=== PATIENT | female | born 1980 | race Caucasian/White ===

== ENCOUNTER 2022-06-23 00:19 | Inpatient (IN) | payer MEDICAID ==
[~2022-06-23] VITALS: Ht 152.4 cm; Wt 78.0 kg
[2022-06-23] MEDS ORDERED: AMPICILLIN 2GM in NS 100ML 100 ML IV SCH (04:00)
[2022-06-23] MEDS ORDERED: METHYLERGONOVINE MALEATE 0.2 MG/ML IM PRN (04:00)
[2022-06-23] MEDS ORDERED: LIDOCAINE HCL 1% 20ML VIAL (Pyxis) INJ INFIL NR (04:00)
[2022-06-23] MEDS ORDERED: OXYTOCIN 30 UNITS/500ML NS PMX 500 ML IV SCH (04:00)
[2022-06-23] MEDS ORDERED: NALOXONE HCL 0.4 MG/ML 1ML VIAL IM PRN (04:00)
[2022-06-23] MEDS: LACTATED RINGERS 1,000 ML IV SCH ×2 (04:52→06:24)
[2022-06-23] MEDS: BUTORPHANOL TARTRATE 2 MG/ML VIAL IV PRN ×2 (04:53→06:34)
[2022-06-23 06:22] LABS: BASOPHILS % 0.3 % (0.0-2.0); EOSINOPHILS % 0.8 % (0.0-5.0); HEMOGLOBIN. 13.3 g/dL (12.0-16.0); LYMPHOCYTES % 19.6 % (20.0-50.0); MEAN CORPUSCULAR HEMOGLOBIN 29.9 pg (28.0-32.0); MEAN CORPUSCULAR VOLUME 89.7 fL (81.0-99.0); MEAN PLATELET VOLUME 10.9 fl (7.4-10.4); NEUTROPHILS % 75.3 % (40.0-76.0); PLATELET 202 x1000/uL (130-400); RED BLOOD CELL COUNT 4.46 mill/uL (4.2-5.4); RED CELL DISTRIBUTION WIDTH 14.8 % (11.6-14.6)
[2022-06-23 06:24] LABS: CLARITY URINE CLEAR (CLEAR); COLOR URINE YELLOW (YELLOW); KETONES URINE NEGATIVE (NEGATIVE); LEUKOCYTE ESTERASE URINE NEGATIVE (NEGATIVE); NITRITE URINE NEGATIVE (NEGATIVE); OCCULT BLOOD URINE NEGATIVE (NEGATIVE); PROTEIN URINE NEGATIVE (NEGATIVE); SPECIFIC GRAVITY URINE 1.002 (1.005-1.030); UROBILINOGEN URINE 0.2 E.U./dL (0.2-1.0)
[2022-06-23 06:30] LABS: INR 0.9; PARTIAL THROMBOPLASTIN TIME 29.9 sec (23.4-31.0); PROTHROMBIN TIME 9.6 sec (9.6-11.0)
[2022-06-23 06:38] LABS: *AMPHETAMINES SCREEN URINE NEGATIVE (NEGATIVE); *BARBITURATES SCREEN URINE NEGATIVE (NEGATIVE); *BENZODIAZEPINES SCREEN URINE NEGATIVE (NEGATIVE); *COCAINE SCREEN URINE NEGATIVE (NEGATIVE); CANNABINOID URINE SCREEN NEGATIVE (NEGATIVE); METHADONE URINE SCREEN NEGATIVE (NEGATIVE); OPIATES URINE SCREEN NEGATIVE (NEGATIVE); PHENCYCLIDINE URINE SCREEN NEGATIVE (NEGATIVE)
[2022-06-23] MEDS ORDERED: IBUPROFEN 400MG TABLET PO PRN (07:15)
[2022-06-23] MEDS ORDERED: PREN-176 PO (08:05)
[2022-06-23 09:00] VITALS: BP 95/53
[2022-06-23] MEDS ORDERED: AMPICILLIN 1,000 MG in SODIUM CHLORIDE 0.9% 50 ML IV SCH (10:30)
[2022-06-23] MEDS: PRENATAL VIT/FE FUMARATE/FA TABLET PO SCH (11:30)
[2022-06-23] MEDS: IBUPROFEN 800MG TABLET PO PRN ×2 (11:31→18:20)
[2022-06-23 16:00] VITALS: BP 96/57
[2022-06-23 20:00] VITALS: BP 99/57
[2022-06-24] MEDS: IBUPROFEN 800MG TABLET PO PRN ×4 (00:26→20:36)
[2022-06-24 04:00] VITALS: BP 105/58
[2022-06-24] MEDS ORDERED: IBUP-2030 PO (06:28)
[2022-06-24] MEDS ORDERED: FERR-63 PO (06:28)
[2022-06-24 07:30] LABS: BASOPHILS % 0.2 % (0.0-2.0); HEMATOCRIT. 33.7 % (36.0-48.0); HEMOGLOBIN. 11.1 g/dL (12.0-16.0); LYMPHOCYTES % 15.9 % (20.0-50.0); MEAN CORPUSCULAR HEMOGLOBIN 29.8 pg (28.0-32.0); MEAN CORPUSCULAR VOLUME 90.1 fL (81.0-99.0); MEAN PLATELET VOLUME 9.6 fl (7.4-10.4); NEUTROPHILS % 77.9 % (40.0-76.0); PLATELET 189 x1000/uL (130-400); RED BLOOD CELL COUNT 3.74 mill/uL (4.2-5.4); RED CELL DISTRIBUTION WIDTH 14.9 % (11.6-14.6)
[2022-06-24] MEDS ORDERED: FERROUS SULFATE 325MG TABLET PO SCH (07:30)
[2022-06-24 09:32] VITALS: BP 110/64
[2022-06-24] MEDS: PRENATAL VIT/FE FUMARATE/FA TABLET PO SCH (12:57)
[2022-06-24 20:00] VITALS: BP 101/63
[2022-06-24] MEDS ORDERED: DOCUSATE SODIUM 100MG CAPSULE PO SCH (21:00)
[2022-06-25 03:15] VITALS: BP 95/61
[2022-06-25 08:00] VITALS: BP 109/71
[2022-06-28 21:00] LABS: HEPATITIS B SURFACE ANTIGEN NEGATIVE
== END 2022-06-25 11:50 | disposition home or self-care (01) | DRG 560 ==
LOC: 8 EST LDRP 00:19 → OBSVTOIN 00:19 → 8 EST LDRP 07:20 → 8EST 08:59
PROVIDERS: ADMIT Obstetrics & Gynecology; ATTEND Obstetrics & Gynecology
PROC: 10E0XZZ Delivery of Products of Conception, External Approach (ICD-10-PCS; principal; 2022-06-23)
DX: O69.1XX0 Labor and delivery complicated by cord around neck, with compression, not applicable or unspecified (principal); Z37.0 Single live birth; O99.214 Obesity complicating childbirth; Z3A.38 38 weeks gestation of pregnancy; Z20.822 Contact with and (suspected) exposure to COVID-19
CPT/HCPCS: 36415; 76805; 76818; 80305; 81003; 85025; 86592; 86703; 86762; 86850; 86900; 87340; 87426; 99281; J0290; J0595; J2590